=== PATIENT | male | born 1945 | race Caucasian/White ===

== ENCOUNTER 2020-02-15 10:08 | Inpatient (IN) ==
[2020-02-15 10:49] LABS: ABS Basophils 0.1 10^3/ul (0-0.2); ABS Lymphocytes 1.2 10^3/ul (1.0-4.8); ABS Monocytes 0.6 10^3/ul (0-0.8); ABS Neutrophils 8.5 10^3/ul (1.5-7.7); Eosinophil % 0.1 %; Hematocrit 42 % (42-52); Hemoglobin 15.5 g/dL (14.0-18.0); Lymphocyte % 11.8 %; Mean Corpuscular HGB Conc 37 g/dL (31-36); Mean Corpuscular Hemoglobin 34 pg (27-31); Mean Corpuscular Volume 92 fL (80-94); Mean Platelet Volume 7.4 fL (7.4-10.4); Platelet Count 354 10^3/uL (150-450); Red Blood Count 4.57 10^6 /uL (4.18-5.48); Red Cell Distribution Width 13 % (10-15); White Blood Count 10.4 10^3/uL (3.5-10.8)
[2020-02-15 10:57] LABS: Albumin 4.6 g/dL (3.2-5.2); Albumin/Globulin Ratio 1.6 (1-3); Calcium 9.8 mg/dL (8.6-10.3); EGFR African American 96.4 (>60); EGFR Non-African American 79.6 (>60); Globulin 2.9 g/dL (2-4); Magnesium 2.2 mg/dL (1.9-2.7); Potassium 3.8 mmol/L (3.5-5.0); Total Bilirubin 2.7 mg/dL (0.2-1.0); Total Protein 7.5 g/dL (6.4-8.9)
[2020-02-15] MEDS ORDERED: Ondansetron 4 mg VIAL 2 MG/ML 2 ml VIAL IV PRN (11:17)
[2020-02-15] MEDS ORDERED: Morphine 4 MG/ML VIAL (1 ml) IV PRN (11:23)
[2020-02-15] MEDS ORDERED: Dexamethasone IV 4 MG in NS 0.9% 50 ML 50 ML IVPB SCH (12:00)
[2020-02-15] MEDS ORDERED: Dexamethasone IV 6 MG in NS 0.9% 50 ML 50 ML IVPB SCH (12:00)
[2020-02-15] MEDS: NS 0.9% 1000 ml BAG 1,000 ML IV SCH (16:14)
[2020-02-15] MEDS: Dexamethasone IV 4 MG/ML VIAL 1 ml VIAL IV SLOW PU SCH (17:06)
[2020-02-15] MEDS: fentaNYL PATCH 12 MCG/HR 1 PATCH TRANSDERM SCH (17:06)
[2020-02-15] MEDS: fentaNYL Patch Check Q Shift NOTE FOLLOW UP SCH (18:50)
[2020-02-16] MEDS: NS 0.9% 1000 ml BAG 1,000 ML IV SCH (02:50)
[2020-02-16 06:01] LABS: ABS Lymphocytes 0.7 10^3/ul (1.0-4.8); ABS Monocytes 0.5 10^3/ul (0-0.8); ABS Neutrophils 5.9 10^3/ul (1.5-7.7); Hematocrit 39 % (42-52); Lymphocyte % 10.1 %; Mean Corpuscular HGB Conc 36 g/dL (31-36); Mean Corpuscular Hemoglobin 34 pg (27-31); Mean Corpuscular Volume 93 fL (80-94); Mean Platelet Volume 7.4 fL (7.4-10.4); Nucleated Red Blood Cells % 0.1; Platelet Count 264 10^3/uL (150-450); Red Blood Count 4.17 10^6 /uL (4.18-5.48); Red Cell Distribution Width 13 % (10-15); White Blood Count 7.1 10^3/uL (3.5-10.8)
[2020-02-16 06:04] LABS: Albumin/Globulin Ratio 1.6 (1-3); BUN/Creatinine Ratio 31.9 (8-20); Calcium 8.6 mg/dL (8.6-10.3); EGFR African American 129.5 (>60); Globulin 2.5 g/dL (2-4); Potassium 4.1 mmol/L (3.5-5.0); Total Bilirubin 2.3 mg/dL (0.2-1.0); Total Protein 6.5 g/dL (6.4-8.9)
[2020-02-16] MEDS: fentaNYL Patch Check Q Shift NOTE FOLLOW UP SCH ×2 (06:36→18:56)
[2020-02-16] MEDS ORDERED: Midazolam 2 mg/2 ml VIAL 1 mg/ml 2 ml VIAL (2 mg) ONE ×2 (08:27)
[2020-02-16] MEDS ORDERED: fentaNYL 100 mcg/2 ml 50 MCG/ML VIAL ONE (08:27)
[2020-02-16] MEDS ORDERED: Bupivacaine 0.5% SDV PF 30ML VIAL ONE (08:35)
[2020-02-16 08:42] LABS: INR 1.31 (0.82-1.09)
[2020-02-16] MEDS ORDERED: Lidocaine 2% JELLY 6 ML TOPICAL ONE (09:05)
[2020-02-16] MEDS ORDERED: ceFAZolin 1 GM X ONE DOSE (AddVan) IVPB (09:30)
[2020-02-16] MEDS: Dexamethasone IV 4 MG/ML VIAL 1 ml VIAL IV SLOW PU SCH ×2 (11:33→20:08)
[2020-02-17] MEDS: NS 0.9% 1000 ml BAG 1,000 ML IV SCH ×3 (02:11→23:20)
[2020-02-17] MEDS: fentaNYL Patch Check Q Shift NOTE FOLLOW UP SCH ×2 (06:47→18:55)
[2020-02-17 07:18] LABS: ABS Lymphocytes 0.5 10^3/ul (1.0-4.8); ABS Monocytes 0.5 10^3/ul (0-0.8); ABS Neutrophils 6.4 10^3/ul (1.5-7.7); Hematocrit 40 % (42-52); Hemoglobin 14.1 g/dL (14.0-18.0); Lymphocyte % 6.7 %; Mean Corpuscular HGB Conc 36 g/dL (31-36); Mean Corpuscular Hemoglobin 33 pg (27-31); Mean Corpuscular Volume 94 fL (80-94); Mean Platelet Volume 7.4 fL (7.4-10.4); Platelet Count 280 10^3/uL (150-450); Red Blood Count 4.23 10^6 /uL (4.18-5.48); Red Cell Distribution Width 13 % (10-15); White Blood Count 7.5 10^3/uL (3.5-10.8)
[2020-02-17 07:28] LABS: Albumin/Globulin Ratio 1.8 (1-3); BUN/Creatinine Ratio 33.8 (8-20); Calcium 8.8 mg/dL (8.6-10.3); EGFR African American 145.7 (>60); EGFR Non-African American 120.4 (>60); Globulin 2.2 g/dL (2-4); Indirect Bilirubin 2.1 mg/dL (0.3-1.0); Potassium 4.3 mmol/L (3.5-5.0); Total Bilirubin 2.5 mg/dL (0.2-1.0); Total Protein 6.2 g/dL (6.4-8.9)
[2020-02-17] MEDS: Dexamethasone IV 4 MG/ML VIAL 1 ml VIAL IV SLOW PU SCH ×2 (08:31→21:33)
[2020-02-18] MEDS: fentaNYL Patch Check Q Shift NOTE FOLLOW UP SCH ×2 (06:43→19:21)
[2020-02-18] MEDS: NS 0.9% 1000 ml BAG 1,000 ML IV SCH ×2 (09:15→20:01)
[2020-02-18] MEDS: Dexamethasone IV 4 MG/ML VIAL 1 ml VIAL IV SLOW PU SCH ×2 (09:16→21:46)
[2020-02-18] MEDS: fentaNYL PATCH 12 MCG/HR 1 PATCH TRANSDERM SCH (16:35)
[2020-02-19] MEDS: NS 0.9% 1000 ml BAG 1,000 ML IV SCH ×2 (06:22→17:07)
[2020-02-19] MEDS: fentaNYL Patch Check Q Shift NOTE FOLLOW UP SCH ×2 (06:55→18:50)
[2020-02-19] MEDS: Dexamethasone IV 4 MG/ML VIAL 1 ml VIAL IV SLOW PU SCH ×2 (09:24→21:25)
[2020-02-20] MEDS: NS 0.9% 1000 ml BAG 1,000 ML IV SCH (02:59)
[2020-02-20] MEDS: fentaNYL Patch Check Q Shift NOTE FOLLOW UP SCH (06:45)
[2020-02-20 07:29] VITALS: BP 139/83
[2020-02-20] MEDS: Dexamethasone IV 4 MG/ML VIAL 1 ml VIAL IV SLOW PU SCH (08:35)
== END 2020-02-20 10:45 | disposition home or self-care (01) | DRG 845 ==
LOC: SSU 10:08 → CHOA 10:08
PROVIDERS: ADMIT Internal Medicine Hematology & Oncology; ATTEND Internal Medicine Hematology & Oncology

== ENCOUNTER 2020-03-07 08:01 | Inpatient (IN) ==
[2020-03-07] MEDS ORDERED: NS 0.9% 1000 ml BAG 1,000 ML IV ONE (09:19)
[2020-03-07] MEDS ORDERED: oxyCODONE 5 mg/5 ml ORAL.SOLN UDC PRN (09:24)
[2020-03-07] MEDS ORDERED: Ondansetron ODT 4 mg TAB 4 MG TAB SL PRN (09:24)
[2020-03-07] MEDS ORDERED: LORazepam 2 mg VIAL 1 ml IV PUSH PRN (09:40)
[2020-03-07] MEDS ORDERED: Lorazepam PYXIS KEY PRN (09:42)
[2020-03-07 10:11] LABS: Hematocrit 35 % (42-52); Hemoglobin 12.2 g/dL (14.0-18.0); Mean Corpuscular HGB Conc 35 g/dL (31-36); Mean Corpuscular Hemoglobin 33 pg (27-31); Mean Corpuscular Volume 94 fL (80-94); Mean Platelet Volume 7.5 fL (7.4-10.4); Platelet Count 257 10^3/uL (150-450); Red Blood Count 3.68 10^6 /uL (4.18-5.48); Red Cell Distribution Width 13 % (10-15); White Blood Count 4.8 10^3/uL (3.5-10.8)
[2020-03-07] MEDS: fentaNYL PATCH 25 MCG/HR 1 PATCH TRANSDERM SCH (10:26)
[2020-03-07 10:27] LABS: Albumin 3.5 g/dL (3.2-5.2); Albumin/Globulin Ratio 1.2 (1-3); BUN/Creatinine Ratio 38.2 (8-20); Calcium 8.8 mg/dL (8.6-10.3); EGFR African American 138.3 (>60); EGFR Non-African American 114.3 (>60); Potassium 3.9 mmol/L (3.5-5.0); Total Bilirubin 1.1 mg/dL (0.2-1.0); Total Protein 6.5 g/dL (6.4-8.9)
[2020-03-07] MEDS: Enoxaparin 40 MG/0.4 ML SYR SUBCUT SCH (10:29)
[2020-03-07] MEDS ORDERED: APREPITANT 130 MG/18 ML VIAL IV ONE (11:00)
[2020-03-07] MEDS ORDERED: PALONOSETRON HCL 0.05 MG/ML (0.25 MG) SYRINGE (0.05 MG/ML) IV ONE (11:00)
[2020-03-07] MEDS ORDERED: [UNRECOGNIZED DRUG - MIXTURE] IV ONE (11:00)
[2020-03-07] MEDS: Dexamethasone IV 4 MG/ML VIAL 1 ml VIAL IV SLOW PU SCH (11:43)
[2020-03-07] MEDS ORDERED: MESNA IVPB ONE (12:00)
[2020-03-07] MEDS ORDERED: NS 0.9% IVPB ONE ×2 (12:00→12:30)
[2020-03-07 12:05] LABS: ABS Eosinophils 0.1 10^3/ul (0-0.6); ABS Lymphocytes 0.4 10^3/ul (1.0-4.8); ABS Monocytes 0.6 10^3/ul (0-0.8); ABS Neutrophils 3.7 10^3/ul (1.5-7.7); Eosinophil % 1.1 %; Lymphocyte % 8.9 %; Nucleated Red Blood Cells % 0.1
[2020-03-07] MEDS ORDERED: IFOSFAMIDE IVPB ONE (12:30)
[2020-03-07] MEDS: NS 0.9% IVPB SCH ×3 (12:36→20:13)
[2020-03-07] MEDS: DOXORUBICIN IVPB SCH (12:36)
[2020-03-07] MEDS ORDERED: Morphine ORAL CONCENTRATE 5 MG/0.25 ML ORAL.SYRIN SL PRN (12:56)
[2020-03-07] MEDS: Magic MouthWash1-BEN/MAAL/LIDO 180 ML BTL SWISH SPIT SCH ×3 (14:07→20:15)
[2020-03-07] MEDS: dexAMETHasone Elix 0.5mg/5ml (NF) SWISH SPIT SCH ×3 (14:07→20:15)
[2020-03-07] MEDS: MESNA IVPB SCH ×2 (16:16→20:13)
[2020-03-07] MEDS: NS 0.9% 1,000 ML IV SCH (16:34)
[2020-03-08] MEDS: NS 0.9% 1,000 ML IV SCH ×2 (03:36→16:20)
[2020-03-08 05:36] LABS: Hematocrit 33 % (42-52); Hemoglobin 11.6 g/dL (14.0-18.0); Mean Corpuscular HGB Conc 35 g/dL (31-36); Mean Corpuscular Hemoglobin 33 pg (27-31); Mean Corpuscular Volume 95 fL (80-94); Mean Platelet Volume 7.4 fL (7.4-10.4); Platelet Count 249 10^3/uL (150-450); Red Blood Count 3.47 10^6 /uL (4.18-5.48); Red Cell Distribution Width 13 % (10-15)
[2020-03-08 05:53] LABS: Albumin 3.3 g/dL (3.2-5.2); Albumin/Globulin Ratio 1.2 (1-3); BUN/Creatinine Ratio 31.7 (8-20); EGFR African American 151.1 (>60); EGFR Non-African American 124.8 (>60); Globulin 2.8 g/dL (2-4); Potassium 4.1 mmol/L (3.5-5.0); Total Bilirubin 0.8 mg/dL (0.2-1.0); Total Protein 6.1 g/dL (6.4-8.9)
[2020-03-08 06:23] LABS: ABS Lymphocytes 0.2 10^3/ul (1.0-4.8); ABS Monocytes 0.5 10^3/ul (0-0.8); ABS Neutrophils 4.3 10^3/ul (1.5-7.7); Lymphocyte % 4.4 %; Nucleated Red Blood Cells % 0.1
[2020-03-08] MEDS: fentaNYL Patch Check Q Shift NOTE FOLLOW UP SCH ×2 (06:46→19:27)
[2020-03-08] MEDS: Magic MouthWash1-BEN/MAAL/LIDO 180 ML BTL SWISH SPIT SCH ×4 (08:56→20:46)
[2020-03-08] MEDS: dexAMETHasone Elix 0.5mg/5ml (NF) SWISH SPIT SCH ×4 (08:57→20:45)
[2020-03-08] MEDS: Lansoprazole SUSP ORALSYR 3 MG/ML G TUBE SCH (08:58)
[2020-03-08] MEDS ORDERED: Aspirin EC 81 mg TAB.EC (enteric coated) PO SCH (09:00)
[2020-03-08] MEDS: Dexamethasone IV 4 MG/ML VIAL 1 ml VIAL IV SLOW PU SCH (11:15)
[2020-03-08] MEDS: Enoxaparin 40 MG/0.4 ML SYR SUBCUT SCH (11:16)
[2020-03-08] MEDS: NS 0.9% IVPB SCH ×5 (12:12→20:43)
[2020-03-08] MEDS: DOXORUBICIN IVPB SCH (12:12)
[2020-03-08] MEDS: MESNA IVPB SCH ×3 (12:25→20:43)
[2020-03-08] MEDS: IFOSFAMIDE IVPB SCH (12:42)
[2020-03-09] MEDS: NS 0.9% 1,000 ML IV SCH ×2 (02:34→16:03)
[2020-03-09 05:27] LABS: Hematocrit 33 % (42-52); Hemoglobin 11.9 g/dL (14.0-18.0); Mean Corpuscular HGB Conc 36 g/dL (31-36); Mean Corpuscular Hemoglobin 34 pg (27-31); Mean Corpuscular Volume 94 fL (80-94); Mean Platelet Volume 6.9 fL (7.4-10.4); Platelet Count 234 10^3/uL (150-450); Red Blood Count 3.54 10^6 /uL (4.18-5.48); Red Cell Distribution Width 13 % (10-15); White Blood Count 5.4 10^3/uL (3.5-10.8)
[2020-03-09 05:59] LABS: Albumin 3.1 g/dL (3.2-5.2); Albumin/Globulin Ratio 1.2 (1-3); BUN/Creatinine Ratio 31.3 (8-20); Calcium 8.3 mg/dL (8.6-10.3); EGFR African American 148.3 (>60); EGFR Non-African American 122.6 (>60); Globulin 2.6 g/dL (2-4); Magnesium 1.9 mg/dL (1.9-2.7); Total Bilirubin 0.6 mg/dL (0.2-1.0); Total Protein 5.7 g/dL (6.4-8.9)
[2020-03-09 07:11] LABS: ABS Basophils 0.1 10^3/ul (0-0.2); ABS Lymphocytes 0.2 10^3/ul (1.0-4.8); ABS Monocytes 0.4 10^3/ul (0-0.8); ABS Neutrophils 4.7 10^3/ul (1.5-7.7); Eosinophil % 0.1 %; Lymphocyte % 4.1 %
[2020-03-09] MEDS: fentaNYL Patch Check Q Shift NOTE FOLLOW UP SCH ×2 (07:11→19:11)
[2020-03-09] MEDS: dexAMETHasone Elix 0.5mg/5ml (NF) SWISH SPIT SCH (09:39)
[2020-03-09] MEDS: Magic MouthWash1-BEN/MAAL/LIDO 180 ML BTL SWISH SPIT SCH ×4 (09:39→19:54)
[2020-03-09] MEDS: Lansoprazole SUSP ORALSYR 3 MG/ML G TUBE SCH (09:40)
[2020-03-09] MEDS: Enoxaparin 40 MG/0.4 ML SYR SUBCUT SCH (11:18)
[2020-03-09] MEDS: Dexamethasone IV 4 MG/ML VIAL 1 ml VIAL IV SLOW PU SCH (11:18)
[2020-03-09] MEDS: NS 0.9% IVPB SCH ×5 (11:54→20:34)
[2020-03-09] MEDS: MESNA IVPB SCH ×3 (11:54→20:34)
[2020-03-09] MEDS: DOXORUBICIN IVPB SCH (11:56)
[2020-03-09] MEDS: IFOSFAMIDE IVPB SCH (12:11)
[2020-03-09] MEDS: Dexamethasone 0.1 MG/ML ORALSYR SWISH SPIT SCH ×3 (13:17→19:53)
[2020-03-09] MEDS ORDERED: Dextran 70/Hypromellose Tears Eye Drops 15 ml BTL (for Artificials Tears) LEFT EYE PRN (22:29)
[2020-03-10] MEDS: NS 0.9% 1,000 ML IV SCH ×2 (02:27→12:22)
[2020-03-10 06:01] LABS: ABS Lymphocytes 0.1 10^3/ul (1.0-4.8); ABS Monocytes 0.1 10^3/ul (0-0.8); ABS Neutrophils 7.1 10^3/ul (1.5-7.7); Eosinophil % 0.1 %; Hematocrit 30 % (42-52); Hemoglobin 10.9 g/dL (14.0-18.0); Lymphocyte % 1.8 %; Mean Corpuscular HGB Conc 36 g/dL (31-36); Mean Corpuscular Hemoglobin 34 pg (27-31); Mean Corpuscular Volume 93 fL (80-94); Mean Platelet Volume 6.8 fL (7.4-10.4); Platelet Count 211 10^3/uL (150-450); Red Blood Count 3.24 10^6 /uL (4.18-5.48); Red Cell Distribution Width 13 % (10-15); White Blood Count 7.4 10^3/uL (3.5-10.8)
[2020-03-10 06:17] LABS: Albumin 2.9 g/dL (3.2-5.2); Albumin/Globulin Ratio 1.1 (1-3); BUN/Creatinine Ratio 30.9 (8-20); Calcium 7.4 mg/dL (8.6-10.3); EGFR African American 138.3 (>60); EGFR Non-African American 114.3 (>60); Globulin 2.7 g/dL (2-4); Magnesium 1.7 mg/dL (1.9-2.7); Potassium 3.6 mmol/L (3.5-5.0); Total Bilirubin 0.7 mg/dL (0.2-1.0); Total Protein 5.6 g/dL (6.4-8.9)
[2020-03-10 06:32] LABS: T4, Total 7.3 mcg/dL (6.09-12.23)
[2020-03-10 06:36] LABS: TSH Ultra Thyroid Stim Horm 0.4 mcIU/mL (0.34-5.60)
[2020-03-10] MEDS: fentaNYL Patch Check Q Shift NOTE FOLLOW UP SCH ×2 (07:20→18:52)
[2020-03-10] MEDS ORDERED: Palonosetron 0.05 MG/ML 5 ML VIAL IV ONE (09:00)
[2020-03-10] MEDS: Magic MouthWash1-BEN/MAAL/LIDO 180 ML BTL SWISH SPIT SCH ×4 (09:23→21:13)
[2020-03-10] MEDS: Dexamethasone 0.1 MG/ML ORALSYR SWISH SPIT SCH ×4 (09:23→21:13)
[2020-03-10] MEDS: Lansoprazole SUSP ORALSYR 3 MG/ML G TUBE SCH (09:49)
[2020-03-10] MEDS: fentaNYL PATCH 25 MCG/HR 1 PATCH TRANSDERM SCH (09:50)
[2020-03-10] MEDS: NS 0.9% IVPB SCH ×4 (12:02→21:13)
[2020-03-10] MEDS: MESNA IVPB SCH ×3 (12:02→21:13)
[2020-03-10 12:16] LABS: Urine Appearance Cloudy; Urine Bilirubin Negative (Negative); Urine Blood Negative (Negative); Urine Color Yellow; Urine Glucose 1+(50 mg/dL) (Negative); Urine Ketones Negative (Negative); Urine Nitrite Negative (Negative); Urine Protein 1+(30 mg/dL) (Negative); Urine Specific Gravity 1.015 (1.010-1.030); Urine Urobilinogen Negative (Negative)
[2020-03-10] MEDS: IFOSFAMIDE IVPB SCH (12:21)
[2020-03-10] MEDS: Enoxaparin 40 MG/0.4 ML SYR SUBCUT SCH (12:22)
[2020-03-10] MEDS: Dexamethasone IV 4 MG/ML VIAL 1 ml VIAL IV SLOW PU SCH (12:22)
[2020-03-10 12:27] LABS: Urine Bacteria Absent (Absent); Urine Red Blood Cell Trace(0-2/hpf) (Absent); Urine Transitional Epithelial Present (Absent); Urine White Blood Cell 1+(6-10/hpf) (Absent)
[2020-03-10] MEDS ORDERED: Iohexol 350 (CONTRAST) 500 ML MDV IV ONE (15:44)
[2020-03-10] MEDS ORDERED: Amoxicillin/Clavulan ORALSYR 80 MG/ML (400 MG/5 ML) PO SCH (19:30)
[2020-03-11 05:20] LABS: ABS Lymphocytes 0.1 10^3/ul (1.0-4.8); ABS Monocytes 0.1 10^3/ul (0-0.8); ABS Neutrophils 2.8 10^3/ul (1.5-7.7); Hematocrit 31 % (42-52); Lymphocyte % 3.6 %; Mean Corpuscular HGB Conc 36 g/dL (31-36); Mean Corpuscular Hemoglobin 34 pg (27-31); Mean Corpuscular Volume 94 fL (80-94); Platelet Count 217 10^3/uL (150-450); Red Blood Count 3.27 10^6 /uL (4.18-5.48); Red Cell Distribution Width 13 % (10-15)
[2020-03-11 05:36] LABS: Albumin 2.8 g/dL (3.2-5.2); BUN/Creatinine Ratio 32.9 (8-20); Calcium 7.4 mg/dL (8.6-10.3); EGFR African American 133.8 (>60); EGFR Non-African American 110.5 (>60); Globulin 2.8 g/dL (2-4); Potassium 3.5 mmol/L (3.5-5.0); Total Bilirubin 0.6 mg/dL (0.2-1.0); Total Protein 5.6 g/dL (6.4-8.9)
[2020-03-11] MEDS: fentaNYL Patch Check Q Shift NOTE FOLLOW UP SCH (06:57)
[2020-03-11] MEDS ORDERED: Amoxicillin/Clavulan ORALSYR 80 MG/ML (400 MG/5 ML) PEG TUBE SCH ×2 (08:10→09:00)
[2020-03-11] MEDS: Dexamethasone 0.1 MG/ML ORALSYR SWISH SPIT SCH (09:31)
[2020-03-11] MEDS: Magic MouthWash1-BEN/MAAL/LIDO 180 ML BTL SWISH SPIT SCH (09:31)
[2020-03-11] MEDS: Lansoprazole SUSP ORALSYR 3 MG/ML G TUBE SCH (09:35)
[2020-03-11 11:50] VITALS: BP 147/72
[2020-03-11] MEDS: Enoxaparin 40 MG/0.4 ML SYR SUBCUT SCH (12:13)
== END 2020-03-11 12:40 | disposition home health service (06) | DRG 846 ==
LOC: SSU 08:01
PROVIDERS: ADMIT Internal Medicine Hematology & Oncology; ATTEND Internal Medicine Hematology & Oncology